=== PATIENT | male | born 1945 | race Caucasian/White ===

== ENCOUNTER 2016-09-06 06:05 | Day surgery (SDC) | payer BC, OTHER ==
[2016-09-03 15:38] VITALS: BMI 33.9
[~2016-09-06 06:05] MED LIST: BSS (NA/CA/MG/K) BALANCED SALT SOLUTION OPHTH SOLN 15 ML BOTTLE NR ONE
[2016-09-06] MEDS ORDERED: MIDAZOLAM HCL 2 MG/2 ML SINGLE DOSE VIAL ONE (07:57)
[2016-09-06] MEDS ORDERED: PROPOFOL 20 ML ONE (08:06)
[2016-09-06] MEDS ORDERED: DEXAMETHASONE SOD PHOSPHATE 4 MG/1 ML VIAL ONE ×2 (08:06→12:45)
[2016-09-06] MEDS ORDERED: ONDANSETRON 4 MG/2 ML VIAL ONE ×2 (08:06→12:45)
[2016-09-06] MEDS ORDERED: LIDOCAINE HCL/PF 2% SDV 5ML VIAL ONE (08:06)
[2016-09-06 08:07] LABS: ALBUMIN 4.2 g/dl (3.4-5.0); ANION GAP 9 (8-16); CALCIUM 8.9 mg/dL (8.5-10.1); CO2 27 mmol/L (21-32); GLUCOSE,RANDOM 108 mg/dL (74-106); SGOT/AST 22 U/L (15-37); SGPT/ALT 34 U/L (12-78)
[2016-09-06] MEDS ORDERED: ROCURONIUM BROMIDE 50 MG/5 ML VIAL ONE ×2 (08:07→10:29)
[2016-09-06 08:09] LABS: ALK PHOS 71 U/L (45-117); BILIRUBIN,TOTAL 0.5 mg/dL (0.2-1.0); TOT PROT 7.4 g/dl (6.4-8.2)
[2016-09-06] MEDS ORDERED: BSS (NA/CA/MG/K) BALANCED SALT SOLUTION OPHTH SOLN 15 ML BOTTLE ONE (08:23)
[2016-09-06] MEDS ORDERED: BUPIVACAINE HCL/PF 0.25% (2.5MG/ML) 10 ML VIAL ONE (08:33)
[2016-09-06] MEDS ORDERED: LIDOCAINE HCL 0.5% EPINEPHRINE 1:200,000 50 ML VIAL IJ ONE ×3 (08:33→09:04)
[2016-09-06] MEDS ORDERED: ceFAZolin SODIUM 1 GM VIAL ONE (08:48)
[2016-09-06] MEDS ORDERED: GLYCOPYRROLATE 0.2 MG/1 ML VIAL ONE ×2 (08:51→12:46)
[2016-09-06] MEDS ORDERED: BUPIVACAINE HCL/PF 0.25% (2.5MG/ML) 10 ML VIAL IJ ONE ×2 (09:04)
[2016-09-06] MEDS ORDERED: POVIDONE-IODINE 5% OPHTHALMIC PREP 30 ML SOLUTION OU ONE (09:11)
[2016-09-06] MEDS ORDERED: ePHEDrine SULFATE 50 MG/1 ML AMPULE ONE ×2 (09:37→12:30)
[2016-09-06] MEDS ORDERED: SODIUM CHLORIDE 0.9% P/F 10 ML VIAL IJ ONE (12:30)
[2016-09-06] MEDS ORDERED: BACITRACIN 30 GM TUBE TOPICAL OINTMENT ONE (12:34)
[2016-09-06] MEDS ORDERED: NEOSTIGMINE METHYLSULFATE 0.5 MG/ML - 10 ML MDV ONE (12:46)
--- NOTE | 2016-09-06 16:31 | OP ---
DATE OF OPERATION: 09/06/2016 PREOPERATIVE DIAGNOSIS: Facial laxity. POSTOPERATIVE DIAGNOSIS: Facial laxity. PROCEDURE PERFORMED: Facelift. SURGEON: Rowan Gomez MD ANESTHESIOLOGIST: INDICATIONS: The patient is a 71-year-old seen in the office requesting improvement of his nasolabial folds and facial laxity. DESCRIPTION OF PROCEDURE: The patient was brought to the operating room after he had been marked in the holding area. The procedure had been explained prior to the date of surgery. All questions had been answered. Once the patient was brought to the operating room, he was transferred over to the operating table. At this time, general anesthesia was administered. A time- out was carried out. The patient was identified, including the site of surgery. Once agreed, the patient was injected with 0.5% lidocaine with epinephrine with 0.25% Marcaine; a total of 30 mL was used. The skin was prepped with Betadine solution. Eyes were prepped with ophthalmic Betadine and draped in a standard aseptic manner. Surgery was started on the right side. Incisions were made in the preauricular area, extending behind the earlobe. Skin flaps were dissected in a standard manner. Hemostasis was secured with electrocautery. SMAS was located dissected over the parotid gland, care was to prevent dissection beyond parotid gland, SMA was then plicated using 3-0 vicryl sutures,SMAS was not excised. Using Short scar /MAC technique 2-0 Prolene suture was used,point of entrance was over Temporalis fascia running mattress technique, suture was than brought out through the SMAS and soft tissue were plicated using small bites. A loop was made the most medial point closer to NL fold. Prolene suture was returned back to point of entrance and tightly secured with Temporalis fascia, knot was well buried, this plication gave a good cosmetic vertical lift. The SMAS was plicated with 3-0 Vicryl sutures. Excess skin was trimmed to fit, and excised. A multilayer closure was undertaken. In the temporal area zigzag incisions were made in the hairline for good hair growth within the incision line, hiding the incision line well Two Thompson drains were placed in the dissected areas of both cheeks, exiting behind the ear lobes area Similar technique was carried out on the left side. circulation to the flaps was satisfactory. Total time period was 4 hours. The patient was then sent to the recovery room in satisfactory condition. He was given 2 g of Ancef preoperatively. He also had SCDs during the entire time. ESTIMATED BLOOD LOSS: Less than 50 mL. Originally, the patient was to also undergo blepharoplasty of the lower lids. It was opted to do it at another time due to the length of the surgery. ROWAN GOMEZ M.D. [id number] MTDD
[2016-09-06] MEDS ORDERED: VALSARTAN 160 MG TABLET (UD) PO ONE (17:13)
[2016-09-06] MEDS ORDERED: OXYCODONE/APAP 5/325MG COMBO TABLET PO PRN (17:13)
[2016-09-06] MEDS ORDERED: ACETAMINOPHEN 325 MG TABLET (FP) PO PRN (17:21)
[2016-09-06] MEDS: BACITRACIN 3.5 GM OPTHALMIC OINT TUBE OD SCH ×3 (18:50→23:53)
[2016-09-06] MEDS: oxyCODONE HCL 5 MG TABLET PO PRN (20:11)
[2016-09-06] MEDS: CARVEDILOL 6.25 MG TABLET (FP) PO SCH (21:35)
[2016-09-06] MEDS: RANITIDINE HCL 150 MG TABLET (FP) PO SCH (21:35)
[2016-09-06] MEDS ORDERED: CARVEDILOL PO SCH (22:00)
[2016-09-06] MEDS ORDERED: PATIENT'S OWN MEDICATION (NON-FORMULARY) (Ranitidine [Zantac -] 150 MG) PO SCH (22:00)
[2016-09-06] MEDS ORDERED: ATORVASTATIN CA 80 MG TABLET (FP) PO SCH (22:00)
[2016-09-07] MEDS: BACITRACIN 3.5 GM OPTHALMIC OINT TUBE OD SCH ×3 (02:34→08:47)
[2016-09-07] MEDS: oxyCODONE HCL 5 MG TABLET PO PRN (08:45)
[2016-09-07 08:54] VITALS: BP 126/62; PULSE 65; TEMP 99
[2016-09-07] MEDS ORDERED: VALSARTAN 160 MG TABLET (UD) PO SCH (10:00)
[2016-09-07] MEDS ORDERED: VALSARTAN 160 MG PO SCH (10:00)
[2016-09-07] MEDS: RANITIDINE HCL 150 MG TABLET (FP) PO SCH (10:11)
[2016-09-07] MEDS: CARVEDILOL 6.25 MG TABLET (FP) PO SCH (10:11)
--- NOTE | 2016-09-07 10:35 | PN ---
Progress Note (short form) - Note Progress Note: Anesthesia POD#1 S/P Face lift under GA Doing well ,active,ambulating,eating well. bearable pain. No eye pain. No complications to anesthesia seen. Brittanie Mondragon.
--- NOTE | 2016-09-07 14:34 | PATH ---
Surgical Pathology Report Patient Name: ROSARIO MARTINEZ Med. Rec. #: [id number] /Age/Gender: 1945 (Age: 71) / M Account: [id number] Location: [facility] Taken: 09/05/2016 Received: 09/06/2016 Reported: 09/07/2016 Physicians: Theresa Mixon M.D. Specimen(s) Received SKIN FROM FACE Clinical History Facial laxity Final Diagnosis SKIN, FACE, REMOVAL: BENIGN SKIN. Electronically Signed Vicente St M.D. Gross Description Received in formalin, labeled "skin from the face" is a 9.0 x 7.0 x 0.7 cm aggregate of multiple irregular, unoriented portions of love, unremarkable skin. No lesions are identified. First Aid Trainer sections are submitted in one cassette. /09/06/201609/06/2016
== END 2016-09-07 10:59 | disposition home or self-care (01) ==
LOC: JASU-SURG 06:05 → J6S 17:45 → JASU-SURG 09-07 10:59
PROVIDERS: ATTEND Plastic Surgery
PROC: 0W020ZZ Alteration of Face, Open Approach (ICD-10-PCS; principal; 2016-09-06 08:00)
DX: L98.7 Excessive and redundant skin and subcutaneous tissue (principal)
CPT/HCPCS: 36415; 80053; 88300-TC; 94760